=== PATIENT | female | born 1990 | race Caucasian/White ===

== ENCOUNTER 2022-03-27 05:26 | Inpatient (IN) ==
[2022-03-27] MEDS ORDERED: OXYTOCIN 30 UNITS/500 ML BAG IV PRN ×2 (10:44)
[2022-03-27] MEDS ORDERED: PENICILLIN G POTASSIUM 6 MU in DEXTROSE 5% 250 ML IV STA (10:44)
[2022-03-27 11:18] LABS: Hematocrit (blood only) 38.7 % (37-47); Hemoglobin 13.2 g/dL (12.0-16.0); Mean Corpuscular Hemoglobin 28.9 pg (25-34); Mean Corpuscular Hgb Conc 34.1 g/dL (32-36); Mean Corpuscular Volume 84.9 fL (80-100); Mean Platelet Volume 10.8 fL (7.4-10.4); Platelet Count 244 K/uL (130-400); RDW Coefficient of Variation 13.3 % (11.5-14.5); RDW Standard Deviation 40.7 fL (36.4-46.3); Red Blood Count 4.56 M/uL (4.2-5.4); White Blood Count 12.34 K/uL (4.8-10.8)
[2022-03-27] MEDS: LACTATED RINGER'S 1,000 ML IV PRN ×2 (12:00→17:55)
[2022-03-27] MEDS ORDERED: ALBUTEROL HFA 8 GM INHALER INH SCH (13:00)
--- NOTE | 2022-03-27 13:42 | History & Physical Report ---
Date of Service March 27, 2022 Assessment & Plan (1) Supervision of normal intrauterine in primigravida: Plan: IUP at 40 weeks with early labor patient given option to go home vs stay & continue with induction because she is at 40 weeks, and she would prefer to stay and augment labor AROM for bloody fluid after first dose of PCN infused. will begin pitocin augmentation if needed. epidural analgesia when requested anticipate vaginal . Admission and Anticipated Discharge Date Admission Date: March 27, 2022 History of Present Illness Primary Care Provider: Lokesh Ye DO Patient is a 31 yo female EDC 03/27/22 who presents at 40 weeks in early labor, after walking for several hours she has made a small amount of change but continues to have regular contractions about every 5-7 minutes. She lives 1 hour away and GBS (+). has been complicated by hypothyroidism and GDM diet controlled. Allergies Allergy/AdvReac Type Severity Reaction Status Date / Time No Known Allergies Allergy Verified 03/20/22 16:28 Home Medications Medication Instructions Recorded Confirmed Type albuterol sulfate 90 mcg/actuation 1 inh INHALATION QID #18 g 08/29/20 03/27/22 Rx aerosol inhaler prenat.vits,lexis,[id number] 1 tab PO DAILY 08/08/21 03/27/22 History acetone (urine) test (Ketone Urine #50 ea 10/26/21 03/20/22 Rx Test) blood sugar diagnostic (OneTouch #150 ea 10/26/21 03/20/22 Rx Verio test strips) blood-glucose meter (OneTouch #1 ea 10/26/21 03/20/22 Rx Verio Flex meter) lancets 33 gauge (OneTouch Delica #150 ea 10/26/21 03/20/22 Rx Plus Lancet) breast pump #1 ea 12/05/21 03/20/22 Rx levothyroxine 112 mcg tablet 112 mcg PO DAILY #30 tab 12/10/21 03/27/22 Rx Patient History Medical History (Updated 10/15/21 @ 13:41 by Ade SIMMS RN) Asthma Hypothyroidism Family History (Updated 08/29/20 @ 14:48 by Sheri Mcgill LPN) Father Myocardial infarction Denies family history of Ovarian cancer Prostate cancer Breast cancer Colorectal cancer Social History (Updated 08/08/21 @ 14:11 by Sonya Guzmán) Smoking Status: Never smoker Second Hand Exposure: No; Hx Alcohol Use: No Hx Substance Use: No Preferred Language: Bahamian Communication Ability: Effective Visual Impairment: No Limitations Hearing Ability: Normal Book Sewer Required: No Beliefs That Will Affect Care: None marital status: marital status details: [place] [phone] Current Living Situation: Spouse Current Living Situation Comment: lives with spouse, 2 dogs. current occupational status: employed current occupation: [employer] Other Information That Helps Us Care for You: No Feels Safe at Home: Yes Safety Concerns: Feels Safe At This Time Childhood Exposure to Second-Hand Smoke: No caffeine: No during the past year weight has: increased > 10 lbs Dental Care, Regularly: Yes Physical Activity Frequency: Daily Seatbelt Use: always Sunscreen Use: Yes Assistive Devices: None Review of Systems All systems reviewed & are unremarkable except as noted in HPI & below Physical Exam Psychiatric: A+Ox3, euthymic affect Genitourinary: OB Exam Abdomen: + vertex, + estimated weight (7-8 pounds) and + regular contractions Manual OB Exam: + cervical dilation 2 cm, + cervical effacement 90% and + station -1 OB Exam Monitor Tracing: + external FHT monitor used, + external uterine monitor used, + category I and + normal FHT variability Results & Data ([facility]) Vital Signs (Past 12 Hours) Vital Signs Temp Pulse Resp BP 03/27/22 11:08 97.9 F 85 20 120/87 03/27/22 07:11 97.9 F 20 03/27/22 07:10 86 129/83 03/27/22 05:34 98.1 F 92 H 18 129/82 03/27/22 05:32 98.1 F 92 H 18 129/82 Coding Level of Care Code None Diagnoses Supervision of normal intrauterine in primigravida Z34.00
[2022-03-27] MEDS ORDERED: ALBUTEROL HFA 8 GM INHALER INH PRN (13:51)
[2022-03-27] MEDS: PENICILLIN G POTASSIUM 3 MU in DEXTROSE 5% 100 ML IV PRN ×2 (15:59→20:32)
[2022-03-27] MEDS ORDERED: SODIUM CHLORIDE 0.9% INJ 10 ML VIAL ONE (16:46)
[2022-03-27] MEDS ORDERED: ePHEDrine sulfate 50 MG/ML AMP ONE (16:46)
[2022-03-27] MEDS ORDERED: BUPIVACAINE 0.25% 30 ML VIAL ONE (16:46)
[2022-03-27] MEDS ORDERED: fentaNYL 2MCG/ML ROPIVACAINE 1.25MG/ML 100 ML BAG EPI ONE (16:46)
[2022-03-27] MEDS ORDERED: fentaNYL citrate 100 MCG/2 ML VIAL ONE (16:46)
--- NOTE | 2022-03-27 17:54 | Anesthesiology Consultation ---
Date of Service March 27, 2022 Assessment & Plan (1) Encounter for pre-operative examination: Chart Review Chart Review: Acceptable Risk for Labor Epidural History Height/Weight Height: 5 ft 5 in Weight: 83.007 kg Allergies Allergy/AdvReac Type Severity Reaction Status Date / Time No Known Allergies Allergy Verified 03/20/22 16:28 Medications Home Medications Medication Instructions Recorded Confirmed Last Taken albuterol sulfate 90 mcg/actuation 1 inh INHALATION QID #18 g 08/29/20 03/27/22 Unknown aerosol inhaler prenat.vits,lexis,[id number] 1 tab PO DAILY 08/08/21 03/27/22 03/26/22 acetone (urine) test (Ketone Urine #50 ea 10/26/21 03/20/22 Unknown Test) blood sugar diagnostic (OneTouch #150 ea 10/26/21 03/20/22 Unknown Verio test strips) blood-glucose meter (OneTouch #1 ea 10/26/21 03/20/22 Unknown Verio Flex meter) lancets 33 gauge (OneTouch Delica #150 ea 10/26/21 03/20/22 Unknown Plus Lancet) breast pump #1 ea 12/05/21 03/20/22 Unknown levothyroxine 112 mcg tablet 112 mcg PO DAILY #30 tab 12/10/21 03/27/22 03/26/22 Active Medications Generic Name Dose Route Start Last Admin Trade Name Freq PRN Reason Stop Dose Admin Lactated Ringer's 1,000 mls @ 125 mls/hr 03/27/22 10:44 03/27/22 16:55 Lr IV 03/29/22 10:43 999 mls/hr .Q8H PRN Infusion L&D Protocol Protocol Penicillin G Potassium 3 mu/ 106 mls @ 100 mls/hr 03/27/22 13:44 03/27/22 17:22 Dextrose IV 04/06/22 13:43 Infused Q4H PRN Infusion GBS(+) Until Delivery Past Medical History Medical History (Updated 03/27/22 @ 17:54 by Chele Ryan MD) Asthma Hypothyroidism Past Family History Family History Father Myocardial infarction Denies family history of Ovarian cancer Prostate cancer Breast cancer Colorectal cancer Past Surgical History Surgical History (Updated 03/27/22 @ 17:53 by Chele Ryan MD) No significant past surgical history Social History Smoking Status: Never smoker Hx Alcohol Use: No Hx Substance Use: No Physical Exam Vital Signs Last Vital Signs Temp 36.5 C 03/27/22 17:35 Pulse 82 03/27/22 17:49 Resp 22 03/27/22 17:35 BP 125/79 03/27/22 15:09 Pulse Ox 93 03/27/22 17:49 Testing Laboratory Results 03/27/22 10:58 03/27/22 13:47 POC Glucose 83
[2022-03-27] MEDS ORDERED: NALOXONE HCL 0.4 MG/1 ML VIAL/CARP IV PRN (18:20)
[2022-03-27] MEDS ORDERED: NALOXONE HCL 1 MG in SODIUM CHLORIDE 0.9% 1000ML 1,000 ML IV PRN (18:20)
[2022-03-27] MEDS ORDERED: ONDANSETRON INJ 2 MG/ML 2 ML VIAL IV PRN (18:20)
[2022-03-27] MEDS ORDERED: fentaNYL 2MCG/ML ROPIVACAINE 1.25MG/ML 100 ML BAG EPI PRN (18:20)
[2022-03-27] MEDS ORDERED: ePHEDrine sulfate 50 MG/ML AMP IV PRN (18:20)
[2022-03-28] MEDS ORDERED: HYDROCORTISONE ACETATE 25 MG SUPP PR PRN (00:30)
[2022-03-28] MEDS ORDERED: oxyCODONE/ACETAMINOPHEN 5mg/325mg TAB PO PRN (00:30)
[2022-03-28] MEDS ORDERED: OXYTOCIN 30 UNITS/500 ML BAG IV PRN (00:30)
[2022-03-28] MEDS ORDERED: DIPHTHERIA/TETANUS/PERTUSSIS 0.5 ML SYR/VIAL IM ONE (00:30)
[2022-03-28] MEDS ORDERED: ACETAMINOPHEN 325 MG TAB PO PRN (00:30)
[2022-03-28] MEDS ORDERED: BENZOCAINE 20% AER SPR 82.5 GM CAN EXT PRN (00:30)
--- NOTE | 2022-03-28 00:53 | Delivery Summary ---
Vaginal Delivery Summary Date of Service March 28, 2022 Vaginal Delivery Summary and 2nd Degree LAC (bilateral sulcal tears) Patient is a 2 P0 female who presents on her due date in labor. She requested epidural analgesia. Pitocin augmentation was needed to continue adequate dilation. She progressed to full dilation and pushed effectively over intact perineum for delivery of a viable female infant. The infant was vigorous and crying upon delivery. She was placed on the mother's abdomen for further attention and drying. After 1 minute, the cord was clamped and cut. After cord blood was obtained, the placenta was expressed intact with a three-vessel cord. Bilateral sulcal tears were repaired with 3-0 chromic and 2-0 Vicryl. bleeding was controlled with dilute Pitocin and fundal massage. Estimated blood loss was 400 cc. Mother and infant were doing well after delivery. [facility] [place] Vaginal Delivery Charge Delivery Type Details: and 2nd Degree LAC (bilateral sulcal tears)
--- NOTE | 2022-03-28 01:54 | Anesthesia Procedure Note ---
Date of Service March 28, 2022 Anesthesia Post Epidural Note Vital Signs Vital Signs: Temp Pulse Resp BP Pulse Ox 36.9 C 101 H 18 125/76 97 03/28/22 00:24 03/28/22 01:40 03/28/22 01:09 03/28/22 01:40 03/28/22 00:23 Notes Mental Status: alert / awake / arousable and participated in evaluation Nausea / Vomiting: adequately controlled Pain: adequately controlled Airway Patency, RR, SpO2: stable & adequate BP & HR: stable & adequate Hydration State: stable & adequate Neuraxial Anesthesia: was administered and sensory block is resolving Anesthetic Complications: no major complications apparent and Pt Satisfied with anesthetic care Epidural: Removed without complications and With tip intact
[2022-03-28] MEDS: IBUPROFEN 600 MG TAB PO PRN ×5 (04:48→23:19)
--- NOTE | 2022-03-28 06:07 | Obstetrical Progress Note ---
Date of Service March 28, 2022 Assessment & Plan (1) Encounter for care and examination after delivery: Plan: Patient is a 31-year-old now female who delivered at 40 weeks gestation via normal spontaneous vaginal delivery day 1 -Continue routine care -A+, antibody negative, rubella immune, GBS positive (treated) -Encourage breast-feeding -Encouraged ambulation -Tylenol and ibuprofen as needed for pain control -Follow-up OB appointment in [address] Wu Admission and Anticipated Discharge Date Admission Date: March 27, 2022 Supervising Physician Co-Signing Physician Notes Resident Physician Supervision Note: I interviewed and examined the patient. Discussed with Dr. Mccarty and agree with findings and plan as documented in the note. Any exceptions or clarifications are listed here: [None] Documented By: Miley Ta MD, FACOG Subjective Patient is a 31-year-old now female who delivered at 40 weeks gestation via normal spontaneous vaginal delivery day 1. complicated by hypothyroidism and gestational diabetes that was diet controlled. Patient doing very well this morning. Pain is a 2 out of 10 controlled with Motrin and Tylenol. Reports no difficulty with breast-feeding. Patient is ambulating around the room without difficulty and urinating well. Passing gas without bowel movement at this time. Patient is eating and drinking without difficulty. Denies any fevers, chills, chest pain, shortness of breath, nausea, vomiting, or headache. No other complaints at this time Review of Systems Review of Systems: All systems reviewed & are unremarkable except as noted in HPI & below Physical Exam Constitutional: WD/WN, vitals as above Eyes: + anicteric sclerae Neck: trachea midline, no thyromegaly Respiratory: normal respiratory effort, lungs clear to auscultation Cardiovascular: RRR, no murmur, no edema Gastrointestinal (Abdomen): normal bowel sounds, soft, nontender, no hepatosplenomegaly Musculoskeletal: Head/Neck/Chest: normocephalic and head atraumatic Skin: no rashes, warm and dry Neurologic: moves all extremities Psychiatric: A+Ox3, euthymic affect Genitourinary: Uterus palpated 2 cm below the umbilicus, firm Results & Data ([facility]) Vital Signs (Past 12 Hours) Vital Signs Temp Pulse Resp BP Pulse Ox 03/28/22 02:40 104 H 117/75 03/28/22 02:25 104 H 130/73 03/28/22 02:24 18 03/28/22 02:10 96 H 122/73 03/28/22 01:55 88 117/69 03/28/22 01:54 18 03/28/22 01:40 101 H 125/76 03/28/22 01:25 93 H 169/79 H 03/28/22 01:10 91 H 130/71 03/28/22 01:09 18 03/28/22 00:55 93 H 130/62 03/28/22 00:54 18 03/28/22 00:40 79 119/57 L 03/28/22 00:39 18 03/28/22 00:24 36.9 C 81 18 127/60 03/28/22 00:23 85 97 03/28/22 00:18 85 95 03/28/22 00:14 90 94 03/28/22 00:13 84 131/60 95 03/28/22 00:08 87 95 03/28/22 00:07 90 94 03/28/22 00:03 103 H 97 03/27/22 23:58 92 H 128/61 96 03/27/22 23:55 92 H 93 03/27/22 23:53 104 H 97 03/27/22 23:48 129 H 96 03/27/22 23:43 114 H 143/82 H 98 03/27/22 23:40 104 H 89 L 03/27/22 23:38 111 H 98 03/27/22 23:33 94 H 99 03/27/22 23:29 82 143/83 H 03/27/22 23:28 89 99 03/27/22 23:13 67 130/83 03/27/22 23:01 36.7 C 03/27/22 23:00 18 03/27/22 22:58 78 129/82 03/27/22 22:45 18 03/27/22 22:44 75 126/76 03/27/22 22:29 18 03/27/22 22:28 79 134/86 03/27/22 22:14 80 135/83 03/27/22 22:01 18 03/27/22 21:58 72 120/70 03/27/22 21:44 70 116/70 03/27/22 21:31 18 03/27/22 21:28 68 118/73 03/27/22 21:14 67 115/71 03/27/22 20:59 71 119/76 03/27/22 20:45 36.7 C 03/27/22 20:43 71 117/76 03/27/22 20:30 18 03/27/22 20:28 71 114/74 03/27/22 20:13 70 122/74 03/27/22 20:00 18 03/27/22 19:58 73 111/69 03/27/22 19:45 18 03/27/22 19:44 72 115/67 03/27/22 19:40 18 03/27/22 19:30 18 03/27/22 19:27 71 112/69 03/27/22 19:22 69 116/70 03/27/22 19:16 77 114/73 03/27/22 19:15 18 03/27/22 19:12 71 118/70 03/27/22 19:07 75 121/73 03/27/22 19:03 37.1 C 70 18 120/68 03/27/22 18:56 72 115/68 97 03/27/22 18:51 74 118/69 97 03/27/22 18:48 75 123/70 03/27/22 18:46 80 97 03/27/22 18:41 83 110/61 96 03/27/22 18:37 76 114/63 03/27/22 18:36 75 97 03/27/22 18:32 77 115/67 03/27/22 18:31 75 96 03/27/22 18:26 84 108/64 97 03/27/22 18:24 80 113/64 03/27/22 18:22 78 111/63 03/27/22 18:21 76 96 03/27/22 18:20 78 113/64 03/27/22 18:18 72 114/65 03/27/22 18:16 72 108/60 95 03/27/22 18:14 69 98/56 L 92 03/27/22 18:13 78 94/51 L 03/27/22 18:11 83 98 03/27/22 18:06 101 H 99
[2022-03-28] MEDS: PRENATAL VITAMIN 1 TAB PO SCH (08:54)
[2022-03-28] MEDS: DOCUSATE SODIUM 100 MG CAP PO SCH ×2 (08:54→19:56)
[2022-03-28] MEDS: LEVOTHYROXINE SODIUM 112 MCG TABLET PO SCH (12:27)
--- NOTE | 2022-03-29 06:02 | Obstetrical Progress Note ---
Date of Service March 29, 2022 Assessment & Plan (1) Encounter for care and examination after delivery: Plan: Patient is a 31-year-old now female who delivered at 40 weeks gestation via normal spontaneous vaginal delivery day 2 -Continue routine care, D/c today, discharge instructions reviewed with patient -A+, antibody negative, rubella immune, GBS positive (treated) -Encourage breast-feeding -Encouraged ambulation -Tylenol and ibuprofen as needed for pain control -Follow-up OB appointment in [address] Wu Admission and Anticipated Discharge Date Admission Date: March 27, 2022 Supervising Physician Co-Signing Physician Notes Resident Physician Supervision Note: I interviewed and examined the patient. Discussed with Dr. Mccarty and agree with findings and plan as documented in the note. Any exceptions or clarifications are listed here: PPD#2 doing well. Examined perineum/vagina - there is a small amount of swelling around sutures, this appears to be healing appropriately. [place] home discussed instructions. Documented By: Greta Ray, DO Subjective Patient is a 31-year-old now female who delivered at 40 weeks gestation via normal spontaneous vaginal delivery day 2. complicated by hypothyroidism and gestational diabetes that was diet controlled. Patient doing very well this morning. Pain is a 3 out of 10 controlled with percocet. Lochia moderate. Reports no difficulty with breast-feeding. Patient is ambulating around the room without difficulty and urinating well. Passing gas and had a bowel movement yesterday. Patient is eating and drinking without difficulty. Denies any fevers, chills, chest pain, shortness of breath, nausea, vomiting, or headache. No other complaints at this time. Review of Systems Review of Systems: All systems reviewed & are unremarkable except as noted in HPI & below Physical Exam Constitutional: WD/WN, vitals as above Eyes: + anicteric sclerae Neck: trachea midline, no thyromegaly Respiratory: normal respiratory effort, lungs clear to auscultation Cardiovascular: RRR, no murmur, no edema Gastrointestinal (Abdomen): normal bowel sounds, soft, nontender, no hepatosplenomegaly Musculoskeletal: Head/Neck/Chest: normocephalic and head atraumatic Skin: no rashes, warm and dry Neurologic: moves all extremities Psychiatric: A+Ox3, euthymic affect Genitourinary: Uterus palpated at the level of the umbilicus, firm Results & Data ([facility]) Vital Signs (Past 12 Hours) Vital Signs Temp Pulse Resp BP Pulse Ox 03/28/22 23:04 36.7 C 89 18 99/65 L 97 03/28/22 19:39 36.7 C 104 H 18 127/87 96
[2022-03-29] MEDS: LEVOTHYROXINE SODIUM 112 MCG TABLET PO SCH (06:39)
[2022-03-29 07:01] LABS: Hematocrit (blood only) 31.6 % (37-47); Hemoglobin 10.6 g/dL (12.0-16.0); Mean Corpuscular Hemoglobin 28.8 pg (25-34); Mean Corpuscular Hgb Conc 33.5 g/dL (32-36); Mean Corpuscular Volume 85.9 fL (80-100); Mean Platelet Volume 10.6 fL (7.4-10.4); Platelet Count 216 K/uL (130-400); RDW Coefficient of Variation 13.6 % (11.5-14.5); RDW Standard Deviation 42.4 fL (36.4-46.3); Red Blood Count 3.68 M/uL (4.2-5.4); White Blood Count 11.48 K/uL (4.8-10.8)
[2022-03-29] MEDS: IBUPROFEN 600 MG TAB PO PRN (09:54)
[2022-03-29] MEDS: DOCUSATE SODIUM 100 MG CAP PO SCH (09:54)
[2022-03-29] MEDS: PRENATAL VITAMIN 1 TAB PO SCH (09:54)
[2022-03-29] MEDS ORDERED: bisacodyL 5 MG TABEC PO SCH (20:00)
[2022-03-30] MEDS ORDERED: bisacodyL 10 MG SUPP PR PRN (00:30)
== END 2022-03-29 13:00 | disposition home or self-care (01) | DRG 807 ==
LOC: OPB 05:26 → 4S1 05:28 → 4E2 03-28 04:08

== ENCOUNTER 2023-10-24 21:36 | Inpatient (IN) ==
[2023-10-24] MEDS ORDERED: LACTATED RINGER'S 1,000 ML IV PRN (22:06)
[2023-10-24] MEDS ORDERED: LIDOCAINE 1% LOCAL 20 ML VIAL INFIL PRN (22:06)
[2023-10-24] MEDS ORDERED: PENICILLIN GK 6 MU in DEXTROSE 5% 250 ML IV STA (22:06)
[2023-10-24] MEDS ORDERED: OXYTOCIN 30 UNITS/NSS 30 UNITS/500 ML BAG IV PRN (22:06)
[2023-10-24] MEDS ORDERED: fentANYL 2 MCG/ML BUPIVacaine 0.125%-NSS 100ML BAG ONE (22:10)
[2023-10-24] MEDS ORDERED: SODIUM CHLORIDE 0.9% PF INJ 10 ML VIAL ONE (22:10)
[2023-10-24] MEDS ORDERED: ePHEDrine sulfate 50 MG/ML AMP ONE (22:10)
[2023-10-24] MEDS ORDERED: LIDOCAINE 2%/EPINEPHRINE 1:200,000 20 ML PF ONE (22:10)
[2023-10-24] MEDS ORDERED: fentaNYL citrate PF 100 MCG/2 ML VIAL ONE (22:10)
[2023-10-24] MEDS ORDERED: BUPIVACAINE 0.25% PF 30 ML VIAL ONE (22:10)
--- NOTE | 2023-10-24 22:17 | History & Physical Report ---
Date of Service October 24, 2023 Assessment & Plan (1) : Plan: Admit to L&D. EFM/toco. Labs. Desires epidural. History of Present Illness Chief Complaint: labor Primary Care Provider: ZHENG Edward 33yo @ 38 03/12, came to L&D with contractions. No leaking or bleeding. + FM. with GBS+ urine, GDM, hypothyroidism. Allergies Allergy/AdvReac Type Severity Reaction Status Date / Time No Known Allergies Allergy Verified 10/20/23 11:32 Home Medications Medication Instructions Recorded Confirmed Type albuterol sulfate 1.25 mg/3 mL 1.25 mg (3 mL) inhalation QID PRN 01/29/23 10/20/23 Rx solution for nebulization bronchospasm #75 mL albuterol sulfate 90 mcg/actuation 1 inh inhalation QID #6.7 grams 01/29/23 10/20/23 Rx aerosol inhaler vits 75-iron 28 mg-folic pkg PO 01/29/23 10/20/23 History acid 800 mcg-omega-3 oral combo pack (One A Day Women's DHA) levothyroxine 125 mcg tablet 125 mcg PO DAILY #30 tabs 06/03/23 10/20/23 Rx breast pump #1 ea 10/07/23 10/20/23 Rx Patient History Medical History Asthma Human papillomavirus Varicella vaccination Surgical History S/P tonsillectomy S/P ureteral stent placement Family History Father Myocardial infarction Denies family history of Ovarian cancer Prostate cancer Breast cancer Colorectal cancer Social History Smoking Status: Never smoker Second Hand Exposure: No; Do You Dip or Chew Tobacco: No; Hx Alcohol Use: No Hx Substance Use: No Preferred Language: Belarusian Communication Ability: Effective Visual Impairment: No Limitations Hearing Ability: Normal Box Truck Driver Required: No Beliefs That Will Affect Care: None marital status: marital status details: Quincy Flanagan [phone] Current Living Situation: Spouse Current Living Situation Comment: daughter current occupational status: employed 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 Constitutional: WD/WN, vitals as above Respiratory: normal respiratory effort, lungs clear to auscultation no respiratory distress Cardiovascular: Rate/Rhythm: regular rate and regular rhythm Gastrointestinal (Abdomen): Inspection/Auscultation: abdomen normal to inspection Percussion/Palpation: abdomen soft; abdomen nontender Gravid. No s/s chorio or abruption. Skin: no rashes, warm and dry Psychiatric: A+Ox3, euthymic affect Coding Level of Care Code None Diagnoses Z34.90
[2023-10-24 22:39] LABS: Hematocrit (blood only) 37.6 % (37.0-47.0); Hemoglobin 12.8 g/dl (12.0-16.0); Mean Corpuscular Hemoglobin 29.7 pg (25.0-34.0); Mean Corpuscular Volume 87.2 fL (80.0-100.0); Platelet Count 215 K/uL (130-400); RDW Coefficient of Variation 12.7 % (11.5-14.5); RDW Standard Deviation 40.6 fL (36.4-46.3); Red Blood Count 4.31 M/uL (4.20-5.40); White Blood Count 9.79 K/ul (4.8-10.8)
--- NOTE | 2023-10-24 23:45 | Anesthesiology Consultation ---
Date of Service October 24, 2023 Assessment & Plan Chart Review Chart Review: Acceptable Risk for Labor Epidural Consults Requested none History Height/Weight Height: 5 ft 5 in Weight: 86.636 kg Allergies Allergy/AdvReac Type Severity Reaction Status Date / Time No Known Allergies Allergy Verified 10/20/23 11:32 Medications Home Medications Medication Instructions Recorded Confirmed Last Taken albuterol sulfate 1.25 mg/3 mL 1.25 mg (3 mL) inhalation QID PRN 01/29/23 10/20/23 Unknown solution for nebulization bronchospasm #75 mL albuterol sulfate 90 mcg/actuation 1 inh inhalation QID #6.7 grams 01/29/23 10/20/23 Unknown aerosol inhaler vits 75-iron 28 mg-folic pkg PO 01/29/23 10/20/23 Unknown acid 800 mcg-omega-3 oral combo pack (One A Day Women's DHA) levothyroxine 125 mcg tablet 125 mcg PO DAILY #30 tabs 06/03/23 10/20/23 Unknown breast pump #1 ea 10/07/23 10/20/23 Unknown Active Medications Generic Name Dose Route Start Last Admin Trade Name Freq PRN Reason Stop Dose Admin Lactated Ringer's 1,000 mls @ 125 mls/hr 10/24/23 22:06 10/24/23 22:55 Lr IV 10/26/23 22:05 125 mls/hr .Q8H PRN Infusion L&D Protocol Protocol Past Medical History Medical History Asthma Human papillomavirus Varicella vaccination Past Family History Family History Father Myocardial infarction Denies family history of Ovarian cancer Prostate cancer Breast cancer Colorectal cancer Past Surgical History Surgical History S/P tonsillectomy S/P ureteral stent placement Social History Smoking Status: Never smoker Do You Dip or Chew Tobacco: No Hx Alcohol Use: No Hx Substance Use: No Physical Exam Vital Signs Last Vital Signs Temp 36.7 C 10/24/23 22:16 Pulse 93 H 10/24/23 23:43 Resp 18 10/24/23 22:16 BP 109/58 L 10/24/23 23:43 Pulse Ox 92 10/24/23 23:42 Testing Laboratory Results 10/24/23 22:29
[2023-10-24] MEDS ORDERED: SODIUM CHLORIDE 0.9% PF INJ 10 ML VIAL EPI PRN (23:46)
[2023-10-24] MEDS ORDERED: fentaNYL citrate PF 100 MCG/2 ML VIAL EPI STA (23:46)
[2023-10-24] MEDS ORDERED: ROPIVACAINE 0.5% PF 5 MG/ML 20 ML VIAL EPI PRN (23:46)
[2023-10-24] MEDS ORDERED: NALOXONE HCL 0.4 MG/1 ML VIAL/CARP IV PRN (23:46)
[2023-10-24] MEDS ORDERED: SODIUM CHLORIDE 0.9% PF INJ 10 ML VIAL EPI STA (23:46)
[2023-10-24] MEDS ORDERED: BUPIVACAINE 0.25% PF 30 ML VIAL EPI STA (23:46)
[2023-10-24] MEDS ORDERED: LIDOCAINE 2%/EPINEPHRINE 1:200,000 20 ML PF EPI STA (23:46)
[2023-10-24] MEDS ORDERED: LIDOCAINE 2% MPF LOCAL 5 ML VIAL EPI PRN (23:46)
[2023-10-24] MEDS ORDERED: fentANYL 2 MCG/ML BUPIVacaine 0.125%-NSS 100ML BAG EPI PRN (23:46)
[2023-10-24] MEDS ORDERED: NALBUPHINE HCL 5 MG in SYRINGE 0 ML IV PRN (23:46)
[2023-10-24] MEDS ORDERED: diphenhydrAMINE 50 MG/ML VIAL IV PRN (23:46)
[2023-10-24] MEDS ORDERED: BUPIVACAINE 0.25% PF 30 ML VIAL EPI PRN (23:46)
[2023-10-24] MEDS ORDERED: NALOXONE HCL 1 MG in SODIUM CHLORIDE 0.9% 1,000 ML IV PRN (23:46)
[2023-10-24] MEDS ORDERED: ePHEDrine sulfate 50 MG/ML AMP IV PRN (23:46)
[2023-10-24] MEDS ORDERED: fentaNYL citrate PF 100 MCG/2 ML VIAL EPI PRN (23:46)
[2023-10-25] MEDS ORDERED: PENICILLIN GK 3 MU in DEXTROSE 5% 100 ML IV PRN (01:06)
--- NOTE | 2023-10-25 02:03 | Delivery Summary ---
Vaginal Delivery Summary Date of Service October 25, 2023 Vaginal Delivery Summary and 1st Degree LAC Vaginal Delivery Summary: Pre-delivery diagnoses: 33yo @ 39 0/7, spontaneous labor, hypothyroidism Post-delivery diagnoses: same Procedure: spontaneous vaginal delivery Surgeon: Greta Ray DO Complications: none Findings: Viable female . Apgars and weight pending, please see nursery records Estimated blood loss: 300ml Description of delivery: The patient progressed to complete with epidural anesthesia, AROM performed as she was completely dilated and feeling strong urge to push. She then began to push. She spontaneously vaginally delivered a viable from the cephalic presentation. The head delivered in HEATHER position. Nuchal x 1, too tight to reduce, therefore delivered through. The anterior shoulder delivered, followed by the posterior shoulder, followed by the body. The baby was placed on mother's abdomen and a spontaneous cry was heard. Delayed cord clamping was employed, and the cord was doubly clamped and cut. Cord blood was obtained. The placenta was delivered by manual extraction d/t cord avulsion. The uterus and vagina were swept of clots and debris. IV pitocin was given. The uterus became firm. The cervix, vagina, and perineum were inspected and a first degree perineal laceration was noted and repaired in standard fashion with 3-0 vicryl. Excellent hemostasis was observed. The mother and baby are recovering in stable and good condition in the room. Sponge, needle and instrument counts were correct x 2. Greta Ray DO [facility] [place] Vaginal Delivery Charge Vaginal Delivery Codes: 56370 global code for the antepartum, delivery, and post- Delivery Type Details: and 1st Degree LAC
[2023-10-25] MEDS ORDERED: oxyCODONE/ACETAMINOPHEN 5mg/325mg TAB PO PRN (04:49)
[2023-10-25] MEDS ORDERED: OXYTOCIN 30 UNITS/NSS 30 UNITS/500 ML BAG IV PRN (04:49)
[2023-10-25] MEDS ORDERED: HYDROCORTISONE ACETATE 25 MG SUPP PR PRN (04:49)
[2023-10-25] MEDS ORDERED: DIPHTHER/TETAN/PERTUS Vaccine (Tdap, Adol/Adult) 0.5mL IM ONE (04:49)
[2023-10-25] MEDS ORDERED: bisacodyL 10 MG SUPP PR PRN (04:49)
[2023-10-25] MEDS ORDERED: BENZOCAINE 20% SPRY 85 APPLN/85 GM CAN EXT PRN (04:49)
[2023-10-25] MEDS: ceFAZolin 1000MG 1,000 MG/7.5 ML SYR IV SCH ×3 (06:06→21:25)
[2023-10-25] MEDS: LEVOTHYROXINE SODIUM 125 MCG TABLET PO SCH (06:06)
--- NOTE | 2023-10-25 07:44 | Anesthesia Procedure Note ---
Date of Service October 25, 2023 Anesthesia Post Epidural Note Vital Signs Vital Signs: Temp Pulse Resp BP Pulse Ox 36.9 C 81 20 117/77 94 10/25/23 07:08 10/25/23 07:08 10/25/23 07:08 10/25/23 07:08 10/25/23 01:44 Notes Mental Status: alert / awake / arousable Nausea / Vomiting: adequately controlled Pain: adequately controlled Airway Patency, RR, SpO2: stable & adequate BP & HR: stable & adequate Hydration State: stable & adequate Neuraxial Anesthesia: was administered and sensory block is resolving Anesthetic Complications: no major complications apparent and Pt Satisfied with anesthetic care Epidural: Removed without complications and With tip intact
[2023-10-25] MEDS: PRENATAL VITAMIN 1 TAB PO SCH (08:51)
[2023-10-25] MEDS: DOCUSATE SODIUM 100 MG CAP PO SCH ×2 (08:51→21:31)
[2023-10-25] MEDS: IBUPROFEN 600 MG TAB PO PRN ×3 (11:17→23:09)
[2023-10-25] MEDS: ACETAMINOPHEN 325 MG TAB PO PRN ×2 (18:49→23:09)
[2023-10-26] MEDS: IBUPROFEN 600 MG TAB PO PRN (04:39)
[2023-10-26] MEDS: ACETAMINOPHEN 325 MG TAB PO PRN (04:39)
[2023-10-26] MEDS: LEVOTHYROXINE SODIUM 125 MCG TABLET PO SCH (06:42)
[2023-10-26 07:15] LABS: Hematocrit (blood only) 35.3 % (37.0-47.0); Hemoglobin 12.1 g/dl (12.0-16.0)
[2023-10-26] MEDS: PRENATAL VITAMIN 1 TAB PO SCH (07:25)
[2023-10-26] MEDS: DOCUSATE SODIUM 100 MG CAP PO SCH (07:25)
--- NOTE | 2023-10-26 08:24 | Obstetrical Progress Note ---
Date of Service October 26, 2023 Assessment & Plan (1) Encounter for assessment: visit type: exam and care immediately after delivery Qualified Code(s): Z39.0 - Encounter for care and examination of mother immedi ately after delivery Plan Doing well. Plan d/c. Instructions reviewed. Day #:: 1 Subjective Ambulation: ambulating normally Voiding: no voiding problems Passing Gas:: Yes Diet Tolerance:: regular diet Lochia:: Small Feeding Type:: breast feeding Feeling well and wanting d/c. Physical Exam Constitutional WD/WN, vitals as above Respiratory normal respiratory effort, lungs clear to auscultation Cardiovascular RRR, no murmur, no edema Extremities: no calf tenderness and no edema Gastrointestinal (Abdomen) soft, nt, nd, ff/nt at u Results & Data Vital Signs (Past 12 Hours) Vital Signs Temp Pulse Resp BP Pulse Ox O2 Del Method 10/26/23 07:00 36.4 C L 73 16 125/86 97 Room Air 10/25/23 23:10 36.3 C L 75 18 118/78 99 Room Air
[2023-10-26] MEDS ORDERED: bisacodyL 5 MG TABEC PO SCH (20:00)
== END 2023-10-26 10:15 | disposition home or self-care (01) | DRG 807 ==
LOC: OPB 21:36 → 4S1 21:39 → 4E2 10-25 08:22